=== PATIENT | male | born 1970 | race Caucasian/White ===

== ENCOUNTER 2016-07-03 07:42 | Emergency (ER) | payer OTHER ==
[~2016-07-03] VITALS: Ht 182.9 cm; Wt 93.8 kg
[~2016-07-03 07:42] MED LIST: ELIMITE 5% CREA60 GM TP; MULTIPLE VITAM1 EACH PO; NAPROSYN500 MG PO; NAPROXEN500 MG PO; NOHOMEMEDS; OLANZAPINE10 MG PO; PEN-VEE K,VEET500 MG PO; PERIDEX1 ML MM; SEROQUEL100 MG PO; ULTRAM50 MG PO; ZYPREXA20 MG PO
[2016-07-03 07:47] VITALS: BP 168/105
[2016-07-03] MEDS ORDERED: MOTRIN600 MG PO (09:35)
== END 2016-07-03 09:56 | disposition home or self-care (01) ==
LOC: EME 07:42
DX: S63.614A Unspecified sprain of right ring finger, initial encounter (principal); X58.XXXA Exposure to other specified factors, initial encounter
CPT/HCPCS: 73130; 99281; 99283